=== PATIENT | male | born 1965 | race American Indian/Alaskan Native ===

== ENCOUNTER 2017-12-16 16:16 | Inpatient (IN) | payer MEDICARE ==
--- NOTE | 2017-12-16 17:15 | History and Physical Report ---
History of Present Illness Chief complaint: I need help, I cant stop drinking History of present illness: 48 YO Male with Obesity, HTN, HLD, ETOH Dependence admitted directly for Alcohol Withdrawl Syndrome. Pt states that he drinks vodka daily, and that his last drink was this morning. Pt also states that he has experienced nausea, feeling helpless, agitation, insomnia, dizziness, abdominal discomfort, agitation, confusion, headaches, tremors. Pt also acknowledges feeling anxious. Pt seen and evaluated upon arrival to have ETOH Dependence with Alcohol Withdrawl. Pt admitted to [facility] for medical stabilization. Past History Past Medical History: hypertension, hyperlipidemia Past Surgical History: total hip replacement Social history: single, alcohol abuse Family history: hypertension Medications and Allergies Allergies Allergy/AdvReac Type Severity Reaction Status Date / Time Iodine and Iodide Containing AdvReac Anaphylaxis Verified 12/16/17 16:53 Produc latex AdvReac Anaphylaxis Verified 12/16/17 16:52 shrimp AdvReac Anaphylaxis Verified 12/16/17 16:50 Review of Systems Constitutional: no weight loss, no weight gain, no fever, no chills Ears, nose, mouth and throat: no ear pain, no ear discharge, no tinnitis, no decreased hearing, no nose pain, no nasal congestion, no nasal discharge Cardiovascular: no chest pain, no orthopnea, no palpitations, no rapid/ irregular heart beat, no edema, no syncope, no lightheadedness, no shortness of breath Respiratory: no cough, no cough with sputum, no excessive sputum, no hemoptysis , no shortness of breath, no dyspnea on exertion Gastrointestinal: abdominal pain, nausea, no vomiting, no diarrhea, no constipation, no melena, no hematochezia Genitourinary Male: no hematuria, no flank pain, no discharge, no urinary frequency, no urinary hesitancy Rectal: no pain, no incontinence, no bleeding Musculoskeletal: no neck stiffness, no neck pain, no shooting arm pain, no arm numbness/tingling, no low back pain, no shooting leg pain, no leg numbness/ tingling Integumentary: no rash, no pruritis, no redness, no sores, no wounds Neurological: no transient paralysis, no paralysis, no weakness, no parathesias Psychiatric: anxiety, change in sleep habits, insomnia, hopelessness, anhedonia , anxiety attacks, confusion, irritability Endocrine: no cold intolerance, no heat intolerance, no polyphagia, no excessive thirst, no polydipsia, no polyuria Hematologic/Lymphatic: no easy bruising, no easy bleeding, no lymphadenopathy, no lymphedema Allergic/Immunologic: no urticaria, no allergic rhinitis, no wheezing, no persistent infections, no anaphylaxis, no angioedema Exam - Constitutional General appearance: Present: obese - EENT Eyes: Present: PERRL ENT: hearing intact, clear oral mucosa - Neck Neck: Present: supple, normal ROM - Respiratory Respiratory effort: normal Respiratory: bilateral: CTA - Cardiovascular Heart Sounds: Present: S1 & S2. Absent: rub, click - Extremities Extremities: pulses symmetrical, No edema Peripheral Pulses: within normal limits - Abdominal General gastrointestinal: Present: soft, non-tender, non-distended, normal bowel sounds Male genitourinary: Present: normal - Integumentary Integumentary: Present: clear, warm, dry - Musculoskeletal Musculoskeletal: gait normal, strength equal bilaterally - Psychiatric Psychiatric: appropriate mood/affect, intact judgment & insight, agitated - Neurologic Neurologic: CNII-XII intact, moves all extremities Results - Labs CBC & Chem 7: 12/16/17 18:26 Assessment and Plan - Patient Problems (1) Alcohol withdrawal syndrome with perceptual disturbance Current Visit: Yes Status: Acute Plan to address problem: Alcohol withdrawl protocol: Librium Taper, Ativan PRN, IVF resuscitation, CBC, CMP, Urinalysis, BAL, Screening EKG, banana bag, (2) HTN (hypertension) Current Visit: Yes Status: Acute Qualifiers: Hypertension type: essential hypertension Qualified Code(s): I10 - Essential (primary) hypertension Plan to address problem: monitor bp q shift, resume prehospital medication (3) HLD (hyperlipidemia) Current Visit: Yes Status: Acute Qualifiers: Hyperlipidemia type: mixed hyperlipidemia Qualified Code(s): E78.2 - Mixed hyperlipidemia Plan to address problem: continue prehospital medication. (4) DVT prophylaxis Current Visit: Yes Status: Acute Plan to address problem: SCD to BLE while in bed.
[2017-12-16] MEDS ORDERED: ATIVAN IV PRN (17:16)
[2017-12-16] MEDS ORDERED: VITAMIN B-1 100 MG, FOLVITE 1 MG, INFUVITE 10 ML in NACL 0.9% 1000 ML 1,000 ML IV ONE (18:18)
[2017-12-16] MEDS ORDERED: ATIVAN IV ONE (18:45)
[2017-12-16 18:48] LABS: Hematocrit 41.5 % (35.5-45.6); Hemoglobin 13.7 gm/dl (11.8-15.2); Mean Corpuscular HGB Conc 33 % (32-34); Mean Corpuscular Hemoglobin 26 pg (28-32); Mean Corpuscular Volume 80 fl (84-94); Platelet Count 295 K/mm3 (140-440)
[2017-12-16 18:58] LABS: INR 1.05 (0.87-1.13)
[2017-12-16 19:29] LABS: Alanine Aminotransferase 62 units/L (7-56); Albumin 4.3 g/dL (3.9-5)
[2017-12-16 20:43] LABS: BUN/Creatinine Ratio 14; Blood Urea Nitrogen 10 mg/dL (9-20); Calcium 9.2 mg/dL (8.4-10.2); Hemolysis Index 13
[2017-12-16] MEDS: LIBRIUM PO SCH (22:00)
[2017-12-16] MEDS: DESYREL PO SCH (22:23)
[2017-12-16] MEDS: ROBAXIN PO PRN (22:24)
[2017-12-16] MEDS: ZOFRAN IV PRN (22:24)
[2017-12-16] MEDS: BENTYL PO PRN (22:25)
[2017-12-17] MEDS: LIBRIUM PO SCH ×3 (00:52→12:29)
[2017-12-17 04:30] LABS: Bilirubin,Urine NEG (Negative); Blood,Urine NEG (Negative); Color,Urine Yellow (Yellow); Mucus,Urine 1+ /HPF; Protein,Urine <15 mg/dL mg/dL (Negative); Urobilinogen,Urine < 2.0 mg/dL (<2.0)
[2017-12-17 04:53] LABS: WBC,Urine < 1.0 /HPF (0.0-6.0)
[2017-12-17] MEDS ORDERED: NACL 0.9% 1000 ML 0 ML ONE (06:33)
--- NOTE | 2017-12-17 09:35 | Progress Note ---
Assessment and Plan Assessment and plan: -- Alcohol withdrawal syndrome with perceptual disturbance Alcohol withdrawl protocol: Librium Taper, Ativan PRN, IVF resuscitation, And he is supportive care --Alcoholic Liver Disease Closely monitor LFTs,supportive care -- HTN (hypertension) monitor bp q shift, resume prehospital medication -- HLD (hyperlipidemia) continue prehospital medication. --Chronic alcohol use; Counseling strongly advised to quit alcohol intake -- DVT prophylaxis SCD to BLE while in bed Closely monitor the patient and adjust her management as needed Plan of care is reviewed with the patient and his nurse History Interval history: Patient seen and examined medical records reviewed Patient feels better no new complaints Vital signs reviewed Alert awake oriented 3 not in acute distress Hospitalist Physical - Constitutional Vitals: Temp Pulse Resp BP Pulse Ox 98.7 F 101 H 18 104/72 97 12/17/17 07:48 12/17/17 07:48 12/17/17 07:48 12/17/17 07:48 12/17/17 07:48 General appearance: Present: no acute distress, well-nourished, obese, other ( no tremulousness or agitation) - EENT Eyes: Present: PERRL, EOM intact - Neck Neck: Present: supple, normal ROM - Respiratory Respiratory effort: normal Respiratory: bilateral: diminished, negative: rales, rhonchi, wheezing - Cardiovascular Rhythm: regular Heart Sounds: Present: S1 & S2 - Extremities Extremities: no ischemia, No edema - Abdominal General gastrointestinal: soft, non-tender, non-distended, normal bowel sounds - Integumentary Integumentary: Present: clear, warm - Psychiatric Psychiatric: appropriate mood/affect, cooperative - Neurologic Neurologic: CNII-XII intact, moves all extremities Results - Labs CBC & Chem 7: 12/16/17 18:26 12/16/17 18:26 Labs: Laboratory Last Values WBC 5.3 K/mm3 (4.5-11.0) 12/16/17 18:26 RBC 5.20 M/mm3 (3.65-5.03) H 12/16/17 18:26 Hgb 13.7 gm/dl (11.8-15.2) 12/16/17 18:26 Hct 41.5 % (35.5-45.6) 12/16/17 18:26 MCV 80 fl (84-94) L 12/16/17 18: MCH 26 pg (28-32) L 12/16/17 18:26 MCHC 33 % (32-34) 12/16/17 18: RDW 18.0 % (13.2-15.2) H 12/16/17 18: Plt Count 295 K/mm3 (140-440) 12/16/17 18: PT 14.3 Sec. (12.2-14.9) 12/16/17 18: INR 1.05 (0.87-1.13) 12/16/17 18: Sodium 138 mmol/L (137-145) 12/16/17 18: Potassium 4.0 mmol/L (3.6-5.0) 12/16/17: Chloride 100.0 mmol/L (98-107) 12/16/17 18: Carbon Dioxide 19 mmol/L (22-30) L 12/16/17 18: Anion Gap 23 mmol/L 12/16/17 18: BUN 10 mg/dL (9-20) 12/16/17 18: Creatinine 0.7 mg/dL (0.8-1.5) L 12/16/17 18: Estimated GFR > 60 ml/min 12/16/17 18: BUN/Creatinine Ratio 14 % 12/16/17 18: Glucose 122 mg/dL (75-100) H 12/16/17 18: Calcium 9.2 mg/dL (8.4-10.2) 12/16/17 18: Total Bilirubin 0.60 mg/dL (0.1-1.2) 12/16/17 18: AST 119 units/L (5-40) H 12/16/17 18: ALT 62 units/L (7-56) H 12/16/17 18:26 Alkaline Phosphatase 145 units/L (35-129) H 12/16/17 18: Total Protein 8.0 g/dL (6.3-8.2) 12/16/17 18: Albumin 4.3 g/dL (3.9-5) 12/16/17 18:26 Albumin/Globulin Ratio 1.2 % 12/16/17 18:26 Urine Color Yellow (Yellow) 12/17/17 04:00 Urine Turbidity Clear (Clear) 12/17/17 04:00 Urine pH 5.0 (5.0-7.0) 12/17/17 04:00 Ur Specific [place] 1.027 (1.003-1.030) 12/17/17 04:00 Urine Protein <15 mg/dl mg/dL (Negative) 12/17/17 04:00 Urine Glucose (UA) 50 mg/dL (Negative) 12/17/17 04:00 Urine Ketones Neg mg/dL (Negative) 12/17/17 04:00 Urine Blood Neg (Negative) 12/17/17 04:00 Urine Nitrite Neg (Negative) 12/17/17 04:00 Urine Bilirubin Neg (Negative) 12/17/17 04:00 Urine Urobilinogen < 2.0 mg/dL (<2.0) 12/17/17 04:00 Ur Leukocyte Esterase Neg (Negative) 12/17/17 04:00 Urine WBC (Auto) < 1.0 /HPF (0.0-6.0) 12/17/17 04:00 Urine RBC (Auto) 3.0 /HPF (0.0-6.0) 12/17/17 04:00 Urine Mucus 1+ /HPF 12/17/17 04:00 Plasma/Serum Alcohol 0.27 % (0-0.07) H 12/16/17 18:26
[2017-12-17] MEDS: ZOFRAN IV PRN ×2 (14:06→22:01)
[2017-12-17] MEDS: BENTYL PO PRN ×2 (14:08→22:01)
[2017-12-17] MEDS: ROBAXIN PO PRN ×2 (16:22→22:01)
[2017-12-17] MEDS: VISTARIL PO PRN ×2 (16:22→22:01)
[2017-12-17] MEDS: DESYREL PO SCH (22:01)
[2017-12-17] MEDS: LOVENOX SUB-Q SCH (22:02)
--- NOTE | 2017-12-18 08:18 | Progress Note ---
Assessment and Plan Assessment and plan: --Diarrhea loperamide, supportive care, advised plenty of fluids -- Alcohol withdrawal syndrome with perceptual disturbance Alcohol withdrawl protocol: Librium Taper, Ativan PRN, IVF resuscitation, And he is supportive care --Alcoholic Liver Disease Closely monitor LFTs,supportive care -- HTN (hypertension) monitor bp q shift, resume prehospital medication -- HLD (hyperlipidemia) continue prehospital medication. --Chronic alcohol use; Counseling strongly advised to quit alcohol intake -- DVT prophylaxis SCD to BLE while in bed Closely monitor the patient and adjust her management as needed Plan of care is reviewed with the patient and his nurse History Interval history: Since seen and examined medical records reviewed Complains of some diarrhea No tremulousness or agitation or aggression Alert awake oriented 3 vital signs reviewed Hospitalist Physical - Constitutional Vitals: Temp Pulse Resp BP Pulse Ox 98.4 F 101 H 20 123/83 97 12/18/17 07:43 12/18/17 07:43 12/18/17 07:43 12/18/17 07:43 12/18/17 07:43 General appearance: Present: no acute distress, well-nourished, obese, other ( no tremulousness or agitation) - EENT Eyes: Present: PERRL, EOM intact - Neck Neck: Present: supple, normal ROM - Respiratory Respiratory effort: normal Respiratory: bilateral: diminished, negative: rales, rhonchi, wheezing - Cardiovascular Rhythm: regular Heart Sounds: Present: S1 & S2 - Extremities Extremities: no ischemia, No edema - Abdominal General gastrointestinal: soft, non-tender, non-distended, normal bowel sounds - Integumentary Integumentary: Present: clear, warm - Psychiatric Psychiatric: appropriate mood/affect, cooperative - Neurologic Neurologic: CNII-XII intact, moves all extremities Results - Labs CBC & Chem 7: 12/16/17 18:26 12/16/17 18:26 Labs: Laboratory Last Values WBC 5.3 K/mm3 (4.5-11.0) 12/16/17 18:26 RBC 5.20 M/mm3 (3.65-5.03) H 12/16/17 18:26 Hgb 13.7 gm/dl (11.8-15.2) 12/16/17 18:26 Hct 41.5 % (35.5-45.6) 12/16/17 18: MCV 80 fl (84-94) L 12/16/17 18: MCH 26 pg (28-32) L 12/16/17 18: MCHC 33 % (32-34) 12/16/17 18: RDW 18.0 % (13.2-15.2) H 12/16/17 18: Plt Count 295 K/mm3 (140-440) 12/16/17 18: PT 14.3 Sec. (12.2-14.9) 12/16/17 18: INR 1.05 (0.87-1.13) 12/16/17 18: Sodium 138 mmol/L (137-145) 12/16/17: Potassium 4.0 mmol/L (3.6-5.0) 12/16/17: Chloride 100.0 mmol/L (98-107) 12/16/17: Carbon Dioxide 19 mmol/L (22-30) L 12/16/17: Anion Gap 23 mmol/L 12/16/17 18: BUN 10 mg/dL (9-20) 12/16/17 18: Creatinine 0.7 mg/dL (0.8-1.5) L 12/16/17 18: Estimated GFR > 60 ml/min 12/16/17 18: BUN/Creatinine Ratio 14 % 12/16/17 18: Glucose 122 mg/dL (75-100) H 12/16/17: Calcium 9.2 mg/dL (8.4-10.2) 12/16/17: Total Bilirubin 0.60 mg/dL (0.1-1.2) 12/16/17 18: AST 119 units/L (5-40) H 12/16/17 18: ALT 62 units/L (7-56) H 12/16/17 18: Alkaline Phosphatase 145 units/L (35-129) H 12/16/17 18: Total Protein 8.0 g/dL (6.3-8.2) 12/16/17 18: Albumin 4.3 g/dL (3.9-5) 12/16/17 18: Albumin/Globulin Ratio 1.2 % 12/16/17 18:26 Urine Color Yellow (Yellow) 12/17/17 04:00 Urine Turbidity Clear (Clear) 12/17/17 04:00 Urine pH 5.0 (5.0-7.0) 12/17/17 04:00 Ur Specific [place] 1.027 (1.003-1.030) 12/17/17 04:00 Urine Protein <15 mg/dl mg/dL (Negative) 12/17/17 04:00 Urine Glucose (UA) 50 mg/dL (Negative) 12/17/17 04:00 Urine Ketones Neg mg/dL (Negative) 12/17/17 04:00 Urine Blood Neg (Negative) 12/17/17 04:00 Urine Nitrite Neg (Negative) 12/17/17 04:00 Urine Bilirubin Neg (Negative) 12/17/17 04:00 Urine Urobilinogen < 2.0 mg/dL (<2.0) 12/17/17 04:00 Ur Leukocyte Esterase Neg (Negative) 12/17/17 04:00 Urine WBC (Auto) < 1.0 /HPF (0.0-6.0) 12/17/17 04:00 Urine RBC (Auto) 3.0 /HPF (0.0-6.0) 12/17/17 04:00 Urine Mucus 1+ /HPF 12/17/17 04:00 Plasma/Serum Alcohol 0.27 % (0-0.07) H 12/16/17 18:26
[2017-12-18] MEDS: ROBAXIN PO PRN (12:17)
[2017-12-18] MEDS: VISTARIL PO PRN (12:18)
[2017-12-18] MEDS: BENTYL PO PRN (12:18)
[2017-12-18] MEDS: ZOFRAN IV PRN (12:18)
[2017-12-18] MEDS ORDERED: IMODIUM A-D PO ONE (17:46)
[2017-12-18] MEDS ORDERED: IMODIUM A-D PO PRN (17:46)
[2017-12-18] MEDS: FOLVITE PO SCH (18:20)
[2017-12-18] MEDS: PROTONIX PO SCH (18:20)
[2017-12-18] MEDS: DESYREL PO SCH (22:00)
[2017-12-18] MEDS: IMODIUM PO PRN (23:00)
[2017-12-18] MEDS: LOVENOX SUB-Q SCH (23:00)
[2017-12-19] MEDS: IMODIUM PO PRN (05:01)
[2017-12-19 07:40] LABS: Alanine Aminotransferase 37 units/L (7-56); Albumin 3.8 g/dL (3.9-5); BUN/Creatinine Ratio 4; Blood Urea Nitrogen 3 mg/dL (9-20); Calcium 8.7 mg/dL (8.4-10.2); Hemolysis Index 7
[2017-12-19] MEDS ORDERED: MAGNESIUM SULFATE 2GM/50ML 2 GM/50 ML BAG IV ONE (08:10)
[2017-12-19] MEDS: PROTONIX PO SCH (09:17)
[2017-12-19] MEDS: K-DUR PO SCH ×2 (09:18→12:05)
[2017-12-19] MEDS: FOLVITE PO SCH (09:18)
[2017-12-19] MEDS ORDERED: WELLBUTRIN XL PO SCH (10:00)
[2017-12-19] MEDS ORDERED: VITAMIN B-1 PO SCH (10:00)
--- NOTE | 2017-12-19 13:20 | Discharge Summary ---
Providers - Providers Date of Admission: 12/16/17 17:26 Date of discharge: 12/19/17 Attending physician: MAKENNA WALSH Primary care physician: DYAN LIM Hospitalization Reason for admission: alcohol withdrawal management and medical stabilization Hospital course: Very pleasant 48-year-old male patient with history of hypertension dyslipidemia chronic alcohol use was admitted to medical stabilization unit With alcohol withdrawal symptoms for medical stabilization. The patient was admitted and managed per protocols Blood pressures closely monitored, electrolyte imbalances were corrected Symptoms significantly improved Today he is comfortable no new complaints No tremulousness or agitation Vital signs stable, [id number] evaluation and physical examination done by me prior to discharge is unremarkable Patient is hemodynamically and clinically stable for discharge Discharge diagnosis; Alcohol withdrawal syndrome; Alcoholic liver disease Hypertension Dyslipidemia Diarrhea Tremulousness and anxiety resolved Disposition: MT-01 TO HOME OR SELFCARE Time spent for discharge: 32 min Core Measure Documentation - Palliative Care Palliative Care/ Comfort Measures: Not Applicable - Core Measures Any of the following diagnoses?: none Exam - Constitutional Vitals: Temp Pulse Resp BP Pulse Ox 98.9 F 99 H 20 106/76 94 12/19/17 07:52 12/19/17 07:52 12/19/17 10:00 12/19/17 07:52 12/19/17 10:00 General appearance: Present: no acute distress, well-nourished, obese - EENT Eyes: Present: PERRL, EOM intact - Neck Neck: Present: supple, normal ROM - Respiratory Respiratory effort: normal Respiratory: bilateral: diminished, negative: rales, rhonchi, wheezing - Cardiovascular Rhythm: regular Heart Sounds: Present: S1 & S2 - Extremities Extremities: no ischemia, No edema - Abdominal General gastrointestinal: Present: soft, non-tender, non-distended, normal bowel sounds - Integumentary Integumentary: Present: clear, warm - Musculoskeletal Musculoskeletal: strength equal bilaterally, right sided weakness - Psychiatric Psychiatric: appropriate mood/affect, cooperative - Neurologic Neurologic: CNII-XII intact, moves all extremities Plan Activity: advance as tolerated, fall precautions Diet: regular Additional Instructions: f/u PMD 3-5 days. Advised to quit alcohol and recreational drug use. Do not drive or operate heavy machinery under the influence of alcohol Follow up with: DYAN LIM MD [Primary Care Provider] - 7 Days Prescriptions: Folic Acid [Folvite] 1 mg PO QDAY #30 tablet Thiamine [Vitamin B-1] 100 mg PO QDAY #30 tablet
[2017-12-19 17:33] VITALS: BP 125/71
== END 2017-12-19 15:45 | disposition home or self-care (01) | DRG 897 ==
LOC: UNDOADMIN 16:16 → 2B-ACE 16:16 → EDBD 17:26 → MSU 17:26
PROVIDERS: ADMIT Internal Medicine; ATTEND Internal Medicine
DX: F10.232 Alcohol dependence with withdrawal with perceptual disturbance (principal); K70.9 Alcoholic liver disease, unspecified; I10 Essential (primary) hypertension; E78.5 Hyperlipidemia, unspecified; R19.7 Diarrhea, unspecified; F41.9 Anxiety disorder, unspecified; E66.9 Obesity, unspecified; Z96.649 Presence of unspecified artificial hip joint; Z82.49 Family history of ischemic heart disease and other diseases of the circulatory system; Z71.41 Alcohol abuse counseling and surveillance of alcoholic; Z68.36 Body mass index [BMI] 36.0-36.9, adult; Z91.040 Latex allergy status; Z91.013 Allergy to seafood; Z91.041 Radiographic dye allergy status
CPT/HCPCS: 36415; 80053; 80320; 81001; 83735; 85027; 85610; 93005; 93010; G0480; J1650; J2060; J2405; J3411; J3475; J7030; Q0177

== ENCOUNTER 2018-06-23 13:32 | Inpatient (IN) | payer MEDICARE ==
[2018-06-23] MEDS ORDERED: ZOFRAN IV PRN (13:40)
[2018-06-23] MEDS ORDERED: SODIUM CHLORIDE FLUSH SYRINGE 10 ML IV PRN (13:40)
--- NOTE | 2018-06-23 13:40 | History and Physical Report ---
History of Present Illness Date of examination: 06/23/18 Date of admission: 06/23/18 13:32 Medications and Allergies Allergies Allergy/AdvReac Type Severity Reaction Status Date / Time Iodine and Iodide Containing AdvReac Anaphylaxis Verified 12/16/17 16:53 Produc latex AdvReac Anaphylaxis Verified 12/16/17 16:52 shrimp AdvReac Anaphylaxis Verified 12/16/17 16:50 Home Medications Medication Instructions Recorded Confirmed Last Taken Type Lisinopril 20 mg PO DAILY 12/18/17 12/18/17 1 Week Ago History ~12/11/17 Wellbutrin XL 300 mg PO DAILY 12/18/17 12/18/17 1 Week Ago History ~12/11/17 300mg Zantac 150 MG TAB 150 mg PO TID 12/18/17 12/18/17 1 Week Ago History ~12/11/17 Folic Acid [Folvite] 1 mg PO QDAY #30 tablet 12/19/17 Unknown Rx Thiamine [Vitamin B-1] 100 mg PO QDAY #30 tablet 12/19/17 Unknown Rx
[2018-06-23] MEDS ORDERED: BENTYL PO PRN (13:43)
[2018-06-23] MEDS ORDERED: ATIVAN IV PRN (13:43)
[2018-06-23] MEDS ORDERED: ROBAXIN PO PRN (13:43)
[2018-06-23] MEDS: LOVENOX SUB-Q SCH (14:57)
[2018-06-23] MEDS: ATIVAN PO SCH ×3 (14:57→21:50)
[2018-06-23] MEDS: SODIUM CHLORIDE FLUSH SYRINGE 10 ML IV SCH (21:50)
[2018-06-24] MEDS: ATIVAN PO SCH ×5 (02:34→16:02)
--- NOTE | 2018-06-24 06:10 | Event Note ---
Date: 06/23/18 See H/p in reports ETOH Dependence [facility] direct admit HTN
[2018-06-24 06:17] LABS: Hematocrit 36.9 % (35.5-45.6); Hemoglobin 12.3 gm/dl (11.8-15.2); Mean Corpuscular HGB Conc 33 % (32-34); Mean Corpuscular Volume 77 fl (84-94); Platelet Count 279 K/mm3 (140-440); Red Blood Count 4.79 M/mm3 (3.65-5.03)
[2018-06-24 06:51] LABS: Basophils % (Manual) 0 % (0.0-1.8); Total Cells Counted 100
[2018-06-24 06:52] LABS: Anisocytosis 1+; Hypochromasia 1+; Large Platelets Few; Ovalocytes 2+; Stomatocytes 2+; Tear Drop Cells Few
--- NOTE | 2018-06-24 07:15 | History and Physical Report ---
CHIEF COMPLAINT: ETOH dependence and help with the alcohol withdrawal. HISTORY OF PRESENT ILLNESS: A 53-year-old -[place] male comes in for help with the ETOH dependence and ETOH withdrawal. The patient has been drinking alcohol from age 9. Apparently, his alcohol intake increased for 6 years while he was in since the age of [age] years. Then, he became a social drinker, but anywayagain in the last 3 years, the patient has been drinking heavily about a fifth of vodka and a fifth of ana laura or whatever he can get his hands on. The patient has withdrawal symptoms like tremors, nausea, and vomiting and diarrhea sometimes. Very anxious. The patient states he has been having posttraumatic stress disorder and is supposed to get an appointment with a psychiatrist in the next 2-3 weeks. The patient goes to [facility] for his medical care. PAST MEDICAL HISTORY: Significant for hypertension, gastroesophageal reflux disease, and depression. CURRENT MEDICATIONS: Zantac 150 b.i.d., Wellbutrin 300 once a day, thiamine 100 mg once a day, lisinopril 20 mg once a day, folic acid 1 mg once a day. PAST SURGICAL HISTORY: None. FAMILY HISTORY: Hypertension. SOCIAL HISTORY: As mentioned, alcohol on a regular basis one fifth of whiskey and one fifth of ana laura nearly every day for the last 3 years. Does not smoke. No recreational drugs. REVIEW OF SYSTEMS: As mentioned, the patient is tremorous and nervous. No nausea, no vomiting now. Had vomiting before. Otherwise, review of systems negative. PHYSICAL EXAMINATION: GENERAL: Middle-aged male, cooperative during examination. VITAL SIGNS: Blood pressure 111/71, temperature 97.4, pulse is 103, respirations are 20, sats are 95%. HEENT: Unremarkable. Pupils equal and reactive. NECK: Supple, no lymphadenopathy, no thyromegaly. LUNGS: Clear to auscultation and percussion. Good air entry. CARDIOVASCULAR: S1, S2 heard. No gallop, no murmur, no rub. Apical impulse in left fifth intercostal space and midclavicular line. ABDOMEN: Soft and benign. No hepatosplenomegaly. No guarding, no rigidity. Hernial orifices are normal. EXTREMITIES: Good pedal pulses. No pedal edema. CENTRAL NERVOUS SYSTEM: Alert and oriented x 4, nonfocal exam. SKIN: Normal. LABORATORY DATA: Pending. ASSESSMENT AND PLAN: 1. ETOH dependence and ETOH withdrawal. The patient initiated on alcohol medical stabilization orders, which include Ativan taper. The patient initiated on Ativan 1 mg every 4 hours p.r.n. Also, Ativan taper, which includes 1 mg p.o. q.4 hours around the clock and second day 1 mg p.o. q. 6 around the clock and third day 1 mg p.o. q. 8. hours, IV fluids. 2. Hypertension. Continue lisinopril. 3. Depression. Continue Wellbutrin. 4. Gastroesophageal reflux disease. Continue Zantac. 5. Deep venous thrombosis prophylaxis, Lovenox and GI prophylaxis. JOB# [id number] OSWALDO/ELISEO GALLEGOS
[2018-06-24] MEDS ORDERED: ZANTAC 150 MG PO SCH (08:00)
[2018-06-24] MEDS: PEPCID PO SCH ×3 (08:24→19:57)
[2018-06-24] MEDS: LOVENOX SUB-Q SCH ×2 (08:24→10:01)
[2018-06-24] MEDS: FOLVITE PO SCH ×2 (08:25→10:01)
[2018-06-24] MEDS: VITAMIN B-1 PO SCH ×2 (08:25→10:01)
[2018-06-24] MEDS: ZESTRIL PO SCH ×2 (08:26→10:01)
[2018-06-24] MEDS: SODIUM CHLORIDE FLUSH SYRINGE 10 ML IV SCH ×3 (08:27→22:46)
[2018-06-24] MEDS ORDERED: NON-FORMULARY (Lisinopril 20 MG) PO SCH (10:00)
[2018-06-24] MEDS ORDERED: WELLBUTRIN 300 MG PO SCH (10:00)
[2018-06-24] MEDS ORDERED: NACL 0.9% 1000 ML 1,000 ML IV ONE (12:00)
[2018-06-24] MEDS: WELLBUTRIN XL PO SCH (12:58)
[2018-06-24] MEDS: TYLENOL PO PRN ×2 (12:59→19:53)
[2018-06-24 13:05] LABS: BUN/Creatinine Ratio 11; Blood Urea Nitrogen 9 mg/dL (9-20); Calcium 8.2 mg/dL (8.4-10.2); Hemolysis Index 15
--- NOTE | 2018-06-24 14:16 | Progress Note ---
Assessment and Plan Assessment and plan: Alcohol withdrawal - Patient is being managed according to [facility] protocol for alcohol withdrawal - Said mild tremer - Patient was heavy drinker Acute diarrhea with dehydration - Patient didn't have any recent use of antibiotics - will do stool exam -Patient was given bolus 1L normal saline and will continue with maintenance Disposition - Continue inpatient care History Interval history: Patient was complaining 7 episodes of diarrhea overnight, he said he is feeling dehydrated. Hospitalist Physical - Physical exam Narrative exam: Not in cardiopulmonary distress. The patient appeared well nourished and normally developed. Vital signs as documented. Head exam is unremarkable. No scleral icterus . Neck is without jugular venous distension, thyromegaly, or carotid bruits. Lungs are clear to auscultation. Cardiac exam reveals regular rate and Rhythm. Abdominal exam reveals normal bowel sounds. Extremities are nonedematous and both femoral and pedal pulses are normal. LINKING MACHINE OPERATOR: Alert and oriented 3. No focal weakness. - Constitutional Vitals: Temp Pulse Resp BP Pulse Ox 98.8 F 96 H 17 126/86 92 06/24/18 08:08 06/24/18 08:26 06/24/18 08:08 06/24/18 08:26 06/24/18 08:08 Results - Labs CBC & Chem 7: 06/24/18 05:07 06/24/18 12:37 Labs: Laboratory Last Values WBC 5.1 K/mm3 (4.5-11.0) 06/24/18 05:07 RBC 4.79 M/mm3 (3.65-5.03) 06/24/18 05:07 Hgb 12.3 gm/dl (11.8-15.2) 06/24/18 05:07 Hct 36.9 % (35.5-45.6) 06/24/18 05:07 MCV 77 fl (84-94) L 06/24/18 05:07 MCH 26 pg (28-32) L 06/24/18 05:07 MCHC 33 % (32-34) 06/24/18 05:07 RDW 19.0 % (13.2-15.2) H 06/24/18 05:07 Plt Count 279 K/mm3 (140-440) 06/24/18 05:07 Lymph % (Auto) [place] Hammer Operator 06/24/18 05:07 Add Manual Diff Complete 06/24/18 05:07 Total Counted 100 06/24/18 05:07 Seg Neutrophils % [place] Hammer Operator 06/24/18 05:07 Seg Neuts % (Manual) 33.0 % (40.0-70.0) L 06/24/18 05:07 Band Neutrophils % 0 % 06/24/18 05:07 Lymphocytes % (Manual) 60.0 % (13.4-35.0) H 06/24/18 05:07 Reactive Lymphs % (Man) 0 % 06/24/18 05:07 Monocytes % (Manual) 6.0 % (0.0-7.3) 06/24/18 05:07 Eosinophils % (Manual) 1.0 % (0.0-4.3) 06/24/18 05:07 Basophils % (Manual) 0 % (0.0-1.8) 06/24/18 05:07 Metamyelocytes % 0 % 06/24/18 05:07 Myelocytes % 0 % 06/24/18 05:07 Promyelocytes % 0 % 06/24/18 05:07 Blast Cells % 0 % 06/24/18 05:07 Nucleated RBC % Not Reportable 06/24/18 05:07 Seg Neutrophils # Man 1.7 K/mm3 (1.8-7.7) L 06/24/18 05:07 Band Neutrophils # 0.0 K/mm3 06/24/18 05:07 Lymphocytes # (Manual) 3.1 K/mm3 (1.2-5.4) 06/24/18 05:07 Abs React Lymphs (Man) 0.0 K/mm3 06/24/18 05:07 Monocytes # (Manual) 0.3 K/mm3 (0.0-0.8) 06/24/18 05:07 Eosinophils # (Manual) 0.1 K/mm3 (0.0-0.4) 06/24/18 05:07 Basophils # (Manual) 0.0 K/mm3 (0.0-0.1) 06/24/18 05:07 Metamyelocytes # 0.0 K/mm3 06/24/18 05:07 Myelocytes # 0.0 K/mm3 06/24/18 05:07 Promyelocytes # 0.0 K/mm3 06/24/18 05:07 Blast Cells # 0.0 K/mm3 06/24/18 05:07 WBC Morphology Not Reportable 06/24/18 05:07 Hypersegmented Neuts Not Reportable 06/24/18 05:07 Hyposegmented Neuts Not Reportable 06/24/18 05:07 Hypogranular Neuts Not Reportable 06/24/18 05:07 Smudge Cells Not Reportable 06/24/18 05:07 Toxic Granulation Not Reportable 06/24/18 05:07 Toxic Vacuolation Not Reportable 06/24/18 05:07 Dohle Bodies Not Reportable 06/24/18 05:07 Pelger-Huet Anomaly Not Reportable 06/24/18 05:07 Nilda Rods Not Reportable 06/24/18 05:07 Platelet Estimate Appears normal 06/24/18 05:07 Clumped Platelets Not Reportable 06/24/18 05:07 Plt Clumps, EDTA Not Reportable 06/24/18 05:07 Large Platelets Few 06/24/18 05:07 Giant Platelets Not Reportable 06/24/18 05:07 Platelet Satelliting Not Reportable 06/24/18 05:07 Plt Morphology Comment Not Reportable 06/24/18 05:07 RBC Morphology Not Reportable 06/24/18 05:07 Dimorphic RBCs Not Reportable 06/24/18 05:07 Polychromasia Not Reportable 06/24/18 05:07 Hypochromasia 1+ 06/24/18 05:07 Poikilocytosis Not Reportable 06/24/18 05:07 Anisocytosis 1+ 06/24/18 05:07 Microcytosis 1+ 06/24/18 05:07 Macrocytosis Not Reportable 06/24/18 05:07 Spherocytes Not Reportable 06/24/18 05:07 Pappenheimer Bodies Not Reportable 06/24/18 05:07 Sickle Cells Not Reportable 06/24/18 05:07 Target Cells Not Reportable 06/24/18 05:07 Tear Drop Cells Few 06/24/18 05:07 Ovalocytes 2+ 06/24/18 05:07 Stomatocytes 2+ 06/24/18 05:07 Helmet Cells Not Reportable 06/24/18 05:07 [place] Bodies Not Reportable 06/24/18 05:07 [place] Rings Not Reportable 06/24/18 05:07 Lizbeth Cells Not Reportable 06/24/18 05:07 Bite Cells Not Reportable 06/24/18 05:07 Crenated Cell Not Reportable 06/24/18 05:07 Elliptocytes Not Reportable 06/24/18 05:07 Acanthocytes (Spur) Not Reportable 06/24/18 05:07 Rouleaux Not Reportable 06/24/18 05:07 Hemoglobin C Crystals Not Reportable 06/24/18 05:07 Schistocytes Not Reportable 06/24/18 05:07 Malaria parasites Not Reportable 06/24/18 05:07 Joseph Bodies Not Reportable 06/24/18 05:07 Hem Pathologist Commnt No 06/24/18 05:07 Sodium 138 mmol/L (137-145) 06/24/18 12:37 Potassium 4.2 mmol/L (3.6-5.0) 06/24/18 12:37 Chloride 101.1 mmol/L (98-107) 06/24/18 12:37 Carbon Dioxide 22 mmol/L (22-30) 06/24/18 12:37 Anion Gap 19 mmol/L 06/24/18 12:37 BUN 9 mg/dL (9-20) 06/24/18 12:37 Creatinine 0.8 mg/dL (0.8-1.5) 06/24/18 12:37 Estimated GFR > 60 ml/min 06/24/18 12:37 BUN/Creatinine Ratio 11 % 06/24/18 12:37 Glucose 104 mg/dL (75-100) H 06/24/18 12:37 Calcium 8.2 mg/dL (8.4-10.2) L 06/24/18 12:37
[2018-06-24] MEDS: NACL 0.9% 1000 ML 1,000 ML IV SCH ×2 (14:38→22:45)
[2018-06-24] MEDS: PANCREAZE DR 10,500 UNIT PO SCH (17:34)
[2018-06-24] MEDS ORDERED: DESYREL PO SCH (22:00)
[2018-06-25] MEDS: ATIVAN PO SCH ×4 (00:13→20:29)
[2018-06-25] MEDS: NACL 0.9% 1000 ML 1,000 ML IV SCH ×2 (05:42→13:49)
[2018-06-25] MEDS: VITAMIN B-1 PO SCH ×2 (08:04→10:14)
[2018-06-25] MEDS: FOLVITE PO SCH ×2 (08:04→10:13)
[2018-06-25] MEDS: WELLBUTRIN XL PO SCH ×2 (08:05→10:14)
[2018-06-25] MEDS: ZESTRIL PO SCH ×2 (08:06→10:14)
[2018-06-25] MEDS: LOVENOX SUB-Q SCH ×2 (08:06→10:13)
[2018-06-25] MEDS: PEPCID PO SCH ×3 (08:06→20:30)
[2018-06-25] MEDS: PANCREAZE DR 10,500 UNIT PO SCH ×3 (08:07→16:59)
[2018-06-25] MEDS: SODIUM CHLORIDE FLUSH SYRINGE 10 ML IV SCH ×2 (08:07→10:13)
[2018-06-25 09:28] LABS: Alanine Aminotransferase 63 units/L (7-56); Albumin 3.5 g/dL (3.9-5); BUN/Creatinine Ratio 4; Blood Urea Nitrogen 4 mg/dL (9-20); Calcium 7.5 mg/dL (8.4-10.2); Hemolysis Index 2
[2018-06-25] MEDS ORDERED: NON-FORMULARY (Cyclobenzaprine Hcl [Flexeril 5 Mg Tab] 5 MG) PO PRN (13:42)
[2018-06-25] MEDS ORDERED: VISTARIL PO PRN (13:42)
--- NOTE | 2018-06-25 13:46 | Progress Note ---
Assessment and Plan Assessment and plan: Alcohol withdrawal - Patient is being managed according to [facility] protocol for alcohol withdrawal - Patient was heavy drinker Acute diarrhea with dehydration - Patient didn't have any recent use of antibiotics - will do stool exam - Dehydration resolved - Imodium, stop the fluid - Megase for his appetie Resume appropriate home medications Disposition - Continue inpatient care History Interval history: Patient had 4 episodes of diarrhea this morning, patient was alert and oriented. Hospitalist Physical - Physical exam Narrative exam: Not in cardiopulmonary distress. The patient is obese. Vital signs as documented. Head exam is unremarkable. No scleral icterus . Neck is without jugular venous distension, thyromegaly, or carotid bruits. Lungs are clear to auscultation. Cardiac exam reveals regular rate and Rhythm. Abdominal exam reveals normal bowel sounds. Extremities are nonedematous and both femoral and pedal pulses are normal. 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 No focal weakness. - Constitutional Vitals: Temp Pulse Resp BP Pulse Ox 97.2 F L 94 H 17 124/71 96 06/25/18 07:44 06/25/18 08:06 06/25/18 07:44 06/25/18 08:06 06/25/18 07:44 Results - Labs CBC & Chem 7: 06/24/18 05:07 06/25/18 08:35 Labs: Laboratory Last Values WBC 5.1 K/mm3 (4.5-11.0) 06/24/18 05:07 RBC 4.79 M/mm3 (3.65-5.03) 06/24/18 05:07 Hgb 12.3 gm/dl (11.8-15.2) 06/24/18 05:07 Hct 36.9 % (35.5-45.6) 06/24/18 05:07 MCV 77 fl (84-94) L 06/24/18 05:07 MCH 26 pg (28-32) L 06/24/18 05:07 MCHC 33 % (32-34) 06/24/18 05:07 RDW 19.0 % (13.2-15.2) H 06/24/18 05:07 Plt Count 279 K/mm3 (140-440) 06/24/18 05:07 Lymph % (Auto) [place] Operator 06/24/18 05:07 Add Manual Diff Complete 06/24/18 05:07 Total Counted 100 06/24/18 05:07 Seg Neutrophils % [place] Operator 06/24/18 05:07 Seg Neuts % (Manual) 33.0 % (40.0-70.0) L 06/24/18 05:07 Band Neutrophils % 0 % 06/24/18 05:07 Lymphocytes % (Manual) 60.0 % (13.4-35.0) H 06/24/18 05:07 Reactive Lymphs % (Man) 0 % 06/24/18 05:07 Monocytes % (Manual) 6.0 % (0.0-7.3) 06/24/18 05:07 Eosinophils % (Manual) 1.0 % (0.0-4.3) 06/24/18 05:07 Basophils % (Manual) 0 % (0.0-1.8) 06/24/18 05:07 Metamyelocytes % 0 % 06/24/18 05:07 Myelocytes % 0 % 06/24/18 05:07 Promyelocytes % 0 % 06/24/18 05:07 Blast Cells % 0 % 06/24/18 05:07 Nucleated RBC % Not Reportable 06/24/18 05:07 Seg Neutrophils # Man 1.7 K/mm3 (1.8-7.7) L 06/24/18 05:07 Band Neutrophils # 0.0 K/mm3 06/24/18 05:07 Lymphocytes # (Manual) 3.1 K/mm3 (1.2-5.4) 06/24/18 05:07 Abs React Lymphs (Man) 0.0 K/mm3 06/24/18 05:07 Monocytes # (Manual) 0.3 K/mm3 (0.0-0.8) 06/24/18 05:07 Eosinophils # (Manual) 0.1 K/mm3 (0.0-0.4) 06/24/18 05:07 Basophils # (Manual) 0.0 K/mm3 (0.0-0.1) 06/24/18 05:07 Metamyelocytes # 0.0 K/mm3 06/24/18 05:07 Myelocytes # 0.0 K/mm3 06/24/18 05:07 Promyelocytes # 0.0 K/mm3 06/24/18 05:07 Blast Cells # 0.0 K/mm3 06/24/18 05:07 WBC Morphology Not Reportable 06/24/18 05:07 Hypersegmented Neuts Not Reportable 06/24/18 05:07 Hyposegmented Neuts Not Reportable 06/24/18 05:07 Hypogranular Neuts Not Reportable 06/24/18 05:07 Smudge Cells Not Reportable 06/24/18 05:07 Toxic Granulation Not Reportable 06/24/18 05:07 Toxic Vacuolation Not Reportable 06/24/18 05:07 Dohle Bodies Not Reportable 06/24/18 05:07 Pelger-Huet Anomaly Not Reportable 06/24/18 05:07 Nilda Rods Not Reportable 06/24/18 05:07 Platelet Estimate Appears normal 06/24/18 05:07 Clumped Platelets Not Reportable 06/24/18 05:07 Plt Clumps, EDTA Not Reportable 06/24/18 05:07 Large Platelets Few 06/24/18 05:07 Giant Platelets Not Reportable 06/24/18 05:07 Platelet Satelliting Not Reportable 06/24/18 05:07 Plt Morphology Comment Not Reportable 06/24/18 05:07 RBC Morphology Not Reportable 06/24/18 05:07 Dimorphic RBCs Not Reportable 06/24/18 05:07 Polychromasia Not Reportable 06/24/18 05:07 Hypochromasia 1+ 06/24/18 05:07 Poikilocytosis Not Reportable 06/24/18 05:07 Anisocytosis 1+ 06/24/18 05:07 Microcytosis 1+ 06/24/18 05:07 Macrocytosis Not Reportable 06/24/18 05:07 Spherocytes Not Reportable 06/24/18 05:07 Pappenheimer Bodies Not Reportable 06/24/18 05:07 Sickle Cells Not Reportable 06/24/18 05:07 Target Cells Not Reportable 06/24/18 05:07 Tear Drop Cells Few 06/24/18 05:07 Ovalocytes 2+ 06/24/18 05:07 Stomatocytes 2+ 06/24/18 05:07 Helmet Cells Not Reportable 06/24/18 05:07 [place] Bodies Not Reportable 06/24/18 05:07 [place] Rings Not Reportable 06/24/18 05:07 Lizbeth Cells Not Reportable 06/24/18 05:07 Bite Cells Not Reportable 06/24/18 05:07 Crenated Cell Not Reportable 06/24/18 05:07 Elliptocytes Not Reportable 06/24/18 05:07 Acanthocytes (Spur) Not Reportable 06/24/18 05:07 Rouleaux Not Reportable 06/24/18 05:07 Hemoglobin C Crystals Not Reportable 06/24/18 05:07 Schistocytes Not Reportable 06/24/18 05:07 Malaria parasites Not Reportable 06/24/18 05:07 Joseph Bodies Not Reportable 06/24/18 05:07 Hem Pathologist Commnt No 06/24/18 05:07 Sodium 139 mmol/L (137-145) 06/25/18 08:35 Potassium 3.6 mmol/L (3.6-5.0) 06/25/18 08:35 Chloride 103.7 mmol/L (98-107) 06/25/18 08:35 Carbon Dioxide 22 mmol/L (22-30) 06/25/18 08:35 Anion Gap 17 mmol/L 06/25/18 08:35 BUN 4 mg/dL (9-20) L 06/25/18 08:35 Creatinine 0.9 mg/dL (0.8-1.5) 06/25/18 08:35 Estimated GFR > 60 ml/min 06/25/18 08:35 BUN/Creatinine Ratio 4 % 06/25/18 08:35 Glucose 105 mg/dL (75-100) H 06/25/18 08:35 Calcium 7.5 mg/dL (8.4-10.2) L 06/25/18 08:35 Total Bilirubin 0.80 mg/dL (0.1-1.2) 06/25/18 08:35 AST 109 units/L (5-40) H 06/25/18 08:35 ALT 63 units/L (7-56) H 06/25/18 08:35 Alkaline Phosphatase 113 units/L (35-129) 06/25/18 08:35 Total Protein 6.9 g/dL (6.3-8.2) 06/25/18 08:35 Albumin 3.5 g/dL (3.9-5) L 06/25/18 08:35 Albumin/Globulin Ratio 1.0 % 06/25/18 08:35
[2018-06-25] MEDS: IMODIUM PO PRN ×2 (13:50→21:30)
[2018-06-25] MEDS ORDERED: FLEXERIL PO PRN (13:56)
[2018-06-25] MEDS: VISTARIL PO PRN (14:04)
[2018-06-25] MEDS: NEURONTIN PO SCH ×2 (14:04→21:30)
[2018-06-25] MEDS: TYLENOL PO PRN (15:35)
[2018-06-25] MEDS: MEGACE PO SCH ×3 (16:58→21:30)
[2018-06-25] MEDS ORDERED: DESYREL PO SCH (22:00)
[2018-06-26] MEDS: TYLENOL PO PRN (07:05)
[2018-06-26] MEDS: ATIVAN PO SCH (07:05)
[2018-06-26] MEDS: NACL 0.9% 1000 ML 1,000 ML IV SCH (07:06)
[2018-06-26] MEDS: PANCREAZE DR 10,500 UNIT PO SCH ×2 (07:26→12:01)
[2018-06-26] MEDS: PEPCID PO SCH (08:03)
[2018-06-26] MEDS: VISTARIL PO PRN (08:06)
[2018-06-26] MEDS: SODIUM CHLORIDE FLUSH SYRINGE 10 ML IV SCH (09:20)
[2018-06-26] MEDS: LOVENOX SUB-Q SCH (09:21)
[2018-06-26] MEDS: WELLBUTRIN XL PO SCH (09:23)
[2018-06-26] MEDS: MEGACE PO SCH (09:24)
[2018-06-26] MEDS: FOLVITE PO SCH (09:24)
[2018-06-26] MEDS: ZESTRIL PO SCH (09:24)
[2018-06-26] MEDS: NEURONTIN PO SCH (09:24)
[2018-06-26] MEDS: VITAMIN B-1 PO SCH (09:24)
--- NOTE | 2018-06-26 10:36 | Discharge Summary ---
Providers - Providers Date of Admission: 06/23/18 14:01 Attending physician: ZANDRA SALEEM MD Primary care physician: PL SQL DEVELOPER Hospitalization Reason for admission: Alcohol withdrawal Condition: Stable Hospital course: Patient was [facility] for the management of alcohol withdrawal. Patient was treated according to [facility] protocol and discharged home with [facility] Patient has watery diarrhea and stool work up was negative, treated with IV fluids for dehydration and symptomatic treatment with imodium. said he has diar haley like that previously and stopped with OTC imodium. Patient was hemodynamically stable at the time of discharge. Disposition: DC- TO HOME OR SELFCARE Time spent for discharge: 32 minutes - Discharge Diagnoses (1) Alcohol withdrawal syndrome with perceptual disturbance Status: Acute (2) HLD (hyperlipidemia) Status: Acute Qualifiers: Hyperlipidemia type: mixed hyperlipidemia Qualified Code(s): E78.2 - Mixed hyperlipidemia (3) HTN (hypertension) Status: Acute Qualifiers: Hypertension type: essential hypertension Qualified Code(s): I10 - Essential (primary) hypertension Core Measure Documentation - Palliative Care Palliative Care/ Comfort Measures: Not Applicable - Core Measures Any of the following diagnoses?: none Exam - Physical Exam Narrative exam: Not in cardiopulmonary distress. The patient is obese. Vital signs as documented. Head exam is unremarkable. No scleral icterus . Neck is without jugular venous distension, thyromegaly, or carotid bruits. Lungs are clear to auscultation. Cardiac exam reveals regular rate and Rhythm. Abdominal exam reveals normal bowel sounds. Extremities are nonedematous and both femoral and pedal pulses are normal. 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 No focal weakness. - Constitutional Vitals: Temp Pulse Resp BP Pulse Ox 98.4 F 90 20 136/77 97 06/26/18 04:16 06/26/18 09:24 06/26/18 04:16 06/26/18 09:24 06/26/18 04:16 Plan Activity: no restrictions Weight Bearing Status: Full Weight Bearing Diet: low salt Additional Instructions: [facility] Follow up with: MANNY TATUM MD [Primary Care Provider] - 7 Days
[2018-06-26 12:06] VITALS: BP 144/80
== END 2018-06-26 13:20 | disposition home or self-care (01) | DRG 897 ==
LOC: 3A 13:32 → UNDOADMIN 13:32 → MSU 14:01
PROVIDERS: ADMIT Internal Medicine; ATTEND Internal Medicine
DX: F10.232 Alcohol dependence with withdrawal with perceptual disturbance (principal); I10 Essential (primary) hypertension; E78.2 Mixed hyperlipidemia; Y90.0 Blood alcohol level of less than 20 mg/100 ml; K21.9 Gastro-esophageal reflux disease without esophagitis; F32.9 Major depressive disorder, single episode, unspecified; E86.0 Dehydration; R19.7 Diarrhea, unspecified
CPT/HCPCS: 36415; 80048; 80053; 82270; 85007; 85025; 87116; 87177; G0378; J1650; J7030; Q0177